=== PATIENT | female | born 1985 | race Caucasian/White ===

== ENCOUNTER → 2021-11-09 | Outpatient (REF) | payer BC | LOC: M PLALAB 17:12 | PROVIDERS: ATTEND Advanced Practice Midwife | DX: Z12.4 Encounter for screening for malignant neoplasm of cervix (principal) | CPT/HCPCS: 87624; G0123 ==

== ENCOUNTER → 2025-04-08 | Outpatient (REF) | payer BC, OTHER ==
[2025-04-11 13:48] LABS: HPV APTIMA Not Detected (Not Detected)
== END ==
LOC: M SFHCWAGY 09:46
PROVIDERS: ATTEND Advanced Practice Midwife
DX: Z11.51 Encounter for screening for human papillomavirus (HPV) (principal)
CPT/HCPCS: 87624; G0123